=== PATIENT | female | born 1965 | race Caucasian/White ===

== ENCOUNTER 2023-03-22 08:04 | Emergency (ER) | payer OTHER, SELFPAY ==
--- NOTE | 2023-03-22 08:06 | ED.URI ---
HPI - URI/Sore Throat General Chief Complaint: Upper Respiratory Infection Stated Complaint: Sore Throat Time Seen by Provider: 03/22/23 08:14 Source: patient, RN notes reviewed and old records reviewed Mode of arrival: ambulatory Limitations: no limitations History of Present Illness HPI Narrative: 57-year-old female presents to the [facility] with complaints of a sore throat that she woke up with just prior to arrival. No treatment prior to arrival Requesting a work note MD elicited complaint: sore throat Onset (ago): hour(s) (1) Treatments prior to arrival: none Related Data Home Medications Medication Instructions Recorded Confirmed amlodipine 10 mg tablet 10 mg PO DAILY 03/22/23 03/22/23 hydrochlorothiazide 25 mg tablet 25 mg PO DAILY 03/22/23 03/22/23 potassium chloride 20 mEq 20 meq PO DAILY 03/22/23 03/22/23 tablet,extended release propranolol 10 mg tablet 10 mg PO DAILY 03/22/23 03/22/23 Allergies Allergy/AdvReac Type Severity Reaction Status Date / Time Sulfa (Sulfonamide Allergy Hives Verified 03/22/23 08:15 Antibiotics) Review of Systems Review of Systems: All systems reviewed & are unremarkable except as noted in HPI and below Constitutional: Constitutional: Reports no additional constitutional complaints Eyes: Eyes: Reports no additional eye complaints ENT: Reports as per HPI and Reports sore throat Cardiovascular: Cardiovascular: Reports no additional cardiovascular complaints, Denies chest pain and Denies dyspnea Respiratory: Respiratory: Reports no additional respiratory complaints, Denies chest congestion, Denies cough and Denies dyspnea Gastrointestinal: Gastrointestinal: Reports no additional gastrointestinal complaints, Denies abdominal pain, Denies nausea and Denies vomiting Musculoskeletal: Musculoskeletal: Reports no additional musculoskeletal complaints Integumentary/Breasts: Skin/Breast: Reports system reviewed and no additional complaints, except as docu Neurologic: Reports system reviewed and no additional complaints, except as documented Psychiatric: Psychiatric: Reports no additional psychiatric complaints Allergic/Immunologic: Allergic/Immunologic: Reports no additional allergic/immunologic complaints PMFSH Past Medical History Medical History (Updated 03/22/23 @ 08:32 by Gisela Tidwell APRN) H/O gastroesophageal reflux (GERD) Hx of primary hypertension Social History Social History (Updated 03/22/23 @ 08:23 by Gisela Tidwell APRN) Smoking status: Current every day smoker Tobacco type: cigarettes Comments At the time of my signature, I reviewed and agree with the nursing past medical, surgical, social, and family history. There is no relevant family history pertinent to the patient complaint. Exam Const: General: cooperative, no acute distress, well developed, alert, ill appearing chronically, uncomfortable and well nourished Nutritional Appearance: well nourished Orientation/consciousness: patient oriented x3 Limitations: no limitations HENMT: Head: normal to inspection Ears: hearing grossly normal bilaterally, external ears normal, TM's normal bilaterally, EAC's normal, mastoids normal and no periauricular adenopathy Face/Nose/Sinus: Normal external nose present, Normal nares present, Normal nasal mucous membranes and turbinates present, normal facial exam and face symmetric Face and sinus: normal facial exam and face symmetric Mouth: Yes Normal oral and palatal mucosa present, Yes lip normal and Yes moist mucous membranes Throat: tonsils normal, uvula midline, posterior oropharynx abnormal cobblestoning and erythema; no edema, no exudates and no lacerations and no uvular edema Eyes: General: appearance normal, both eyes and all related structures Alignment and Position: alignment normal Periorbital: periorbital findings normal Pupils: Equal, round and reactive pupils present EOM: EOMs intact bilaterally Neck: Neck: normal visual inspection,
[2023-03-22 08:10] VITALS: BP 123/86; PULSE 94; RESP 16; TEMP 36.4; O2SAT 100
== END 2023-03-22 08:51 | disposition home or self-care (01) ==
PROVIDERS: Emergency Provider Nurse Practitioner
DX: J02.0 Streptococcal pharyngitis (principal); I10 Essential (primary) hypertension; F17.210 Nicotine dependence, cigarettes, uncomplicated; Z79.899 Other long term (current) drug therapy
CPT/HCPCS: 87880; 99213; G0463

== ENCOUNTER 2024-06-10 08:45 | Emergency (ER) | payer OTHER, SELFPAY ==
[2024-06-10 08:54] VITALS: BP 123/84; PULSE 105; RESP 20; TEMP 36.6; O2SAT 98
--- OUTSIDE RECORDS SUMMARY | 2024-06-10 09:10 | XMS_ITS | Clinical Summary ---
Author Organization [facility] Address [address] [place] [address] Phone Care Team Providers Care Load Tester Name Role Phone Miri Espinal MD Primary Care Provider [phone] Allergies Active Allergy Reactions Criticality Noted Date Comments Sulfa Antibiotics Hives Low 02/14/2015 Medications meclizine (ANTIVERT) 25 MG Tablet Take 1-2 Tabs by mouth 3 times daily as needed. 60 Tab 0 015 Active Additional Information Patient not taking.Reported on 11/20/2017 hydrochlorothiazide 25 MG Tablet Take 25 mg by mouth daily. Active amLODIPine (NORVASC) 10 MG Tablet Take 10 mg by mouth daily. Active lansoprazole (PREVACID SOLUTAB) 15 MG TABLET DISPERSIBLEIndicati ons:Symptomatic Gastroesophageal Reflux Disease (Inactive) Take 15 mg by mouth daily. Indications: Gastroesophageal Reflux Disease with Current Symptoms Active propranolol (INDERAL) 20 MG Tablet TAKE 1 TABLET BY MOUTH THREE TIMES DAILY 90 Tab 3 017 Active otherIndications:he mp oil 1000 mg 1 Tab by Other route daily. Active Active Problems Problem Noted Date Diagnosed Date Essential tremor 08/16/2015 B12 deficiency 08/16/2015 History of TIA (transient ischemic attack) 05/04 Tobacco dependence 05/04/2015 Essential hypertension 05/04/2015 Tremor 05/04/2015 Family History Medical History Relation Name Comments Cancer Father pancreatic Hypertension Father Cancer Maternal Grandmother ovarian Cancer Paternal Grandmother bone an d breast Relation Name Status Comments Father Maternal Grandmother Mother Alive Paternal Grandmother Social History Tobacco Use Types Packs/Day Years Used Date Smoking Tobacco: Every Day Cigarettes 1 20 Smokeless Tobacco: Never Tobacco Cessation:Ready to Q uit: No Alcohol Use Standard Drinks/Week Comments Yes 0 (1 standard drink = 0.6 oz pure alcohol) half pint of elisha arteaga, and a few mikes hard lemonade Comments No Sex and Gender Information Value Date Recorded Sex Assigned at Not on file Legal Sex Female 12:00 AM CDT Gender Identity Not on file Sexual Orientation Not on file 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 Not on file Not on file Not on file Last Filed Vital Signs Vital Sign Reading Time Taken Comments Blood Pressure 116/92 12/03/2017 10:30 AM CDT Pulse 74 12/03/2017 10:30 AM CDT Temperature 36 C (96.8 F) 12/03/2017 10:30 AM CDT Respiratory Rate 19 12/03/2017 10:30 AM CDT Oxygen Saturation 100% 12/03/2017 10:30 AM CDT Inhaled Oxygen Concentration - - Weight 55.3 kg (122 lb) 11/20/2017 9:00 AM CDT Height 167.6 cm (5' 6 ) 11/20/2017 9:00 AM CDT Body Mass Index 19.69 11/20/2017 9:00 AM CDT Plan of Treatment Health Maintenance Due Date Last Done Comments Hepatitis C Virus (HCV) Screening 1966 TdaP Immunization 1966 Hepatitis B Immunization (1 of 3 - 19+ 3-dose series) 1985 Pap Smear 10/05/1987 Cervical Cancer Screening (CCS) 1996 HPV/Cotest 1996 Cologuard 2016 Immunochemical Fecal Occult Blood 2016 Mammogram 2016 Pneumococcal Immunization (50+ years) (1 of 1 - PCV) 2016 Colonoscopy 12/03/2022 12/03/2017 Colorectal Cancer Screening 12/03/2022 Influenza Immunization (#1) 2023 10/0 10/2022, 01/28/2022, 12/19/2019, Additional history exists SARS-COV-2 Immunization (2023- season) 2023 02/04/2021, 06/17/2020 Respiratory Syncytial Virus (RSV) Immunization (Adult) (1 - 1-dose 75+ series) 2041 12/03/2017 Zoster Immunization Completed 05/27/2021, Meningococcal Immunization (ACWY) Aged Out No longer eligible based on patient's age to complete this topic Pneumococcal Immunization Combined Aged Out No longer eligible based on patient's age to complete this topic Rotavirus Immunization Aged Out No lo nger eligible based on patient's age to complete this topic Insurance [employer]ICAID [employer] Care Teams Load Tester Relationship Specialty Start Date End Date Miri Espinal MD [address] [place] [address] PCP - General Family Medicine 02/28/23
--- OUTSIDE RECORDS SUMMARY | 2024-06-10 09:10 | XMS_ITS | Data Portability ---
Author Organization [facility] Asim Uriostegui Address [address] [place] [address] Care Team Providers Care Concession Stand Attendant Name Role Phone FITZ WISE Primary Care Provider Laura santana Assessment Encounter Date Assessment Date Assessment LastModified by Organization Details LastModified Time 03/20/2022 03/20/2022 Pt's case was reviewed with resident. Documentation was reviewed, and I agree with the resident's note. Dr. Ronny Not available 03/21/2022 13:15:53 03/03/2024 03/03/2024 I personally saw and examined pt w/resident. Documentation was reviewed, and I agree w/resident's note. Dr. Ronny Not available 03/05/2024 07:27:05 Plan of Treatment Reminders Order Date Submit Date Provider Last Modified By Organization Details Last Modified Time Details Appointments None recorde d. Lab urinaly sis, dipstic k, reflex micro 2023 024 [facility], [address] [place] [address], [address], 13:13:02 urinaly sis, dipstic k 2023 024 [email or web address] In-Office Order, Internal Use Only DO Not Attach Compendium DO Not Attach Compendium, Do Not Delete/merge, [id number] 14:52:19 BMP, serum or plasma 2023 024 [facility], [address] [place] [address] 2, [place], [address], 4 13:13:00 urinaly sis, dipstic k 2023 024 [email or web address] In-Office Order, Internal Use Only DO Not Attach Compendium DO Not Attach Compendium, Do Not Delete/merge, [id number] 4 13:08:14 unliste d lab - UA+urin e culture 2023 024 [facility], [address] [facility], [facility] 2, [place], [address], 4 06:18:46 vitamin B12 + folate, serum or blood 2022 023 [facility], [address] [facility], [facility] 2, [place], [address], 3 17:09:42 CBC w/ auto diff 2022 023 [facility], [address] [facility], [facility] 2, [place], [address], 3 20:08:28 ferriti n, serum or plasma 2022 023 [facility], [address] [facility], [facility] 2, [place], [address], 3 17:09:44 TIBC (total iron-bi nding capacit y), serum 2022 023 [facility], [address] [facility], [facility] 2, [place], [address], 3 17:09:42 HbA1c (hemogl obin A1c), blood 2022 023 [facility], [address] [facility], [facility] [address], [place], [address], 3 17:09:43 urinaly sis, dipstic k 2022 023 JOSELYN In-Office Order, Internal Use Only DO Not Attach Compendium DO Not Attach Compendium, Do Not Delete/merge, [id number] 3 10:39:48 CMP, serum or plasma 2022 023 [facility], [address], [place], [address], 3 17:09:[address] referra l 2023 024 JOSELYN Lopez MD, [address] [facility] [address], [place], [address], 4 15:04:33 Procedures None recorde d. Surgeries None recorde d. Imaging LDCT, chest, for lung cancer screeni ng 2022 023 [facility] ([facility] Registration/ Lab, [address] [place], [address], 3 10:05:21 MAMMO, screeni ng, digital , bilater al 2022 023 [email or web address] [facility] ([facility]) Registration/ Lab, [address] [place], [address], 4 09:32:02 LDCT, chest, for lung cancer screeni ng 2021 022 [facility] ([facility]) Registration/ Lab, [address] [place], [address], 2 09:10:04 DEXA 2021 022 [facility] Lab, [address] [place], [address], 2 09:08:01 Medication Orders propran olol 10 mg tablet 2023 024 JOSELYN [id number], [address], [place], [place], [id number], 13:08:22 amlodip ine 10 mg tablet 2023 [facility][id number], [address], [place], [place], [id number], 13:08:25 hydroch lorothi azide 25 mg tablet 2023 [facility] #[id number], [address], [place], [place], [id number], 13:08:23 Patient TargetsNo targets recorded. Patient Instructions Encounter Date Encounter Id Patient Instructions Last Modified By Organization Details Last Modified Time 03/20/2022 [id number] Quitting Tobacco: Care Instructions [email or web address] Not available 03/20/2022 22:15:42 06/08/2022 [id number] Quitting Tobacco: Care Instructions [email or web address] Not available 06/08/2022 17:57:02 On the date of this encounter, I was immediately available to assist the resident/fellow in the care of the patient, and have reviewed and agree with the resident s findings and plan of care. MD Gricelda [email or web address] Not available 06/08/2022 17:47:18 02/26/2023 [id number] Quitting Tobacco: Care Instructions [email or web address] Not available 02/26/2023 10:30:10 I discussed the patient s presentation, findings, assessment and plan with the resident during or immediately after the time of service. I agree with the resident s findings, assessment, and plan as documented in the note above. Mani Lawler MD. [facility] [email or web address] Not available 02/26/2023 15:51:10 08/20/2023 [id number] Quitting Tobacco: Care Instructions [email or web address] Not available 08/20/2023 13:08:12 I was present in the office and available during the visit. I discussed the patient s presentation, findings, assessment and plan with the resident during or immediately after the time of service. I agree with the resident s findings, assessment, and plan as documented in the note above. Mani Lawler MD. [facility] [email or web address] Not available 08/20/2023 12:36:39 Reason for Referral Urologist Referral for Chron ic retention of urine Referring Physician: Horacio Taylor, Putter In, Encounter Date: 03/03/2024 Results Created Date Observation Date Name Description Value Unit Range Abnormal Flag Note LastModifiedBy Organization Detail LastModifiedTime 02/27/2002/26/2023 CBC WITH DIFFE RENTI AL/PL ATELE T WBC 6.7 x10e3 /uL 3.4-10 .8 Not Available [facility] [address] [place], [address], 02/26/2023 20:08:28 02/27/20 23 02/26/2023 CBC WITH DIFFE RENTI AL/PL ATELE T RBC 4.31 x10e6 /uL 3.77-5 .28 Not Available [facility] [address] [place], [address], 02/26/2023 20:08:28 02/27/20 23 02/26/2023 CBC WITH DIFFE RENTI AL/PL ATELE T hemoglobin 14.7 g/dL 11.1-1 5.9 Not Available [facility] [address] [place], [address], 02/26/2023 20:08:28 02/27/20 23 02/26/2023 CBC WITH DIFFE RENTI AL/PL ATELE T hematocrit 41.5 % 34.0-4 6.6 Not Available [facility] [address] [place], [address], 02/26/2023 20:08:28 02/27/20 23 02/26/2023 CBC WITH DIFFE RENTI AL/PL ATELE T MCV 96 fL 79-97 Not Available [facility] [address] [place], [address], 02/26/2023 20:08:28 02/27/20 23 02/26/2023 CBC WITH DIFFE RENTI AL/PL ATELE T MCH 34.1 pg 26.6-3 3.0 above high normal Not Available [facility] [address] [place], [address], 02/26/2023 20:08:28 02/27/20 23 02/26/2023 CBC WITH DIFFE RENTI AL/PL ATELE T MCHC 35.4 g/dL 31.5-3 5.7 Not Available [facility] [address] [place], [address], 02/26/2023 20:08:28 02/27/20 23 02/26/2023 CBC WITH DIFFE RENTI AL/PL ATELE T RDW 12.2 % 11.5-1 4.5 Not Available [facility] [address] [place], [address], 02/26/2023 20:08:28 02/27/20 23 02/26/2023 CBC WITH DIFFE RENTI AL/PL ATELE T platelets 283 x10e3 /uL 150-45 0 Not Available [facility] [address] [place], [address], 02/26/2023 20:08:28 02/27/20 23 02/26/2023 CBC WITH DIFFE RENTI AL/PL ATELE T neutrophils 54 % notest b. Not Available [facility] [address] [place], [address], 02/26/2023 20:08:28 02/27/20 23 02/26/2023 CBC WITH DIFFE RENTI AL/PL ATELE T lymphs 29 % notest b. Not Available [facility] [address] [place], [address], 02/26/2023 20:08:28 02/27/20 23 02/26/2023 CBC WITH DIFFE RENTI AL/PL ATELE T monocytes 12 % notest b. Not Available [facility] [address] [place], [address], 02/26/2023 20:08:28 02/27/20 23 02/26/2023 CBC WITH DIFFE RENTI AL/PL ATELE T eos 3 % notest b. Not Available [facility] [address] [place], [address], 02/26/2023 20:08:28 02/27/20 23 02/26/2023 CBC WITH DIFFE RENTI AL/PL ATELE T basos 2 % notest b. Not Available [facility] [address] [place], [address], 02/26/2023 20:08:28 02/27/20 23 02/26/2023 CBC WITH DIFFE RENTI AL/PL ATELE T neutrophils (absolute) 3.6 x10e3 /uL 1.4-7. 0 Not Available [facility] [address] [place], [address], 02/26/2023 20:08:28 02/27/20 23 02/26/2023 CBC WITH DIFFE RENTI AL/PL ATELE T lymphs (absolute) 1.9 x10e3 /uL 0.7-3. 1 Not Available [facility] [address] [place], [address], 02/26/2023 20:08:28 02/27/20 23 02/26/2023 CBC WITH DIFFE RENTI AL/PL ATELE T monocytes(ab solute) 0.8 x10e3 /uL 0.1-0. 9 Not Available [facility] [address] [place], [address], 02/26/2023 20:08:28 02/27/20 23 02/26/2023 CBC WITH DIFFE RENTI AL/PL ATELE T eos (absolute) 0.2 x10e3 /uL 0.0-0. 4 Not Available [facility] [address] [place], [address], 02/26/2023 20:08:28 02/27/20 23 02/26/2023 CBC WITH DIFFE RENTI AL/PL ATELE T baso (absolute) 0.1 x10e3 /uL 0.0-0. 2 Not Available [facility] [address] [place], [address], 02/26/2023 20:08:28 02/27/20 23 02/26/2023 CBC WITH DIFFE RENTI AL/PL ATELE T immature granulocytes 0.1 % notest b. Not Available [facility] [address] [place], [address], 02/26/2023 20:08:28 02/27/20 23 02/26/2023 CBC WITH DIFFE RENTI AL/PL ATELE T immature grans (abs) 0.0 x10e3 /uL 0.0-0. 1 Not Available [facility] [address] [place], [address], 02/26/2023 20:08:28 02/27/20 23 02/26/2023 CBC WITH DIFFE RENTI AL/PL ATELE T NRBC 0 % 0-0 Not Available [facility] [address] [place], [address], 02/26/2023 20:08:28 02/27/20 23 02/27/2023 CMP14 +EGFR glucose 85 mg/dL 70-99 Not Available [facility] ([facility]) [address] [facility], [place], [address], 02/27/2023 17:09:41 02/27/20 23 02/27/2023 CMP14 +EGFR BUN 8 mg/dL 6-24 Not Available [facility] ([facility]) [address] [facility], [place], [address], 02/27/2023 17:09:41 02/27/20 23 02/27/2023 CMP14 +EGFR creatinine 0.66 mg/dL 0.57-1 .00 Not Available [facility] ([facility]) [address] [place], [address], 02/27/2023 17:09:41 02/27/20 23 02/27/2023 CMP14 +EGFR eGFR 103 mL/mi n/1.7 3 >59 Not Available [facility] ([facility]) [address] [facility], [place], [address], 02/27/2023 17:09:41 02/27/20 23 02/27/2023 CMP14 +EGFR BUN/creatini ne ratio 12 12-30 Not Available [facility] ([facility]) [address] [place], [address], 02/27/2023 17:09:41 02/27/20 23 02/27/2023 CMP14 +EGFR sodium 138 mmol/ L 134-14 4 Not Available [facility] ([facility]) [address] [place], [address], 02/27/2023 17:09:41 02/27/20 23 02/27/2023 CMP14 +EGFR potassium 2.8 mmol/ L 3.5-5. 2 below low normal Not Available [facility] ([facility]) [address] [place], [address], 02/27/2023 17:09:41 02/27/20 23 02/27/2023 CMP14 +EGFR chloride 94 mmol/ L 96-106 below low normal Not Available [facility] ([facility]) [address] [place], [address], 02/27/2023 17:09:41 02/27/20 23 02/27/2023 CMP14 +EGFR carbon dioxide, total 28 mmol/ L 20-29 Not Available [facility] ([facility]) [address] [place], [address], 02/27/2023 17:09:41 02/27/20 23 02/27/2023 CMP14 +EGFR calcium 9.8 mg/dL 8.7-10 .2 Not Available [facility] ([facility]) [address] [facility], [place], [address], 02/27/2023 17:09:41 02/27/20 23 02/27/2023 CMP14 +EGFR protein, total 7.2 g/dL 6.0-8. 5 Not Available [facility] ([facility]) [address] [facility], [place], [address], 02/27/2023 17:09:41 02/27/20 23 02/27/2023 CMP14 +EGFR albumin 4.8 g/dL 3.8-4. 9 Not Available [facility] ([facility]) [address] [facility], [place], [address], 02/27/2023 17:09:41 02/27/20 23 02/27/2023 CMP14 +EGFR globulin, total 2.4 g/dL 1.5-4. 5 Not Available [facility] ([facility]) [address] [facility], [place], [address], 02/27/2023 17:09:41 02/27/20 23 02/27/2023 CMP14 +EGFR A/G ratio 2.0 1.2-2. 2 Not Available [facility] ([facility]) [address] [place], [address], 02/27/2023 17:09:41 02/27/20 23 02/27/2023 CMP14 +EGFR bilirubin, total 0.4 mg/dL 0.0-1. 2 Not Available [facility] ([facility]) [address] [place], [address], 02/27/2023 17:09:41 02/27/20 23 02/27/2023 CMP14 +EGFR alkaline phosphatase 56 IU/L 44-121 Not Available [facility] ([facility]) [address] [facility], [place], [address], 02/27/2023 17:09:41 02/27/20 23 02/27/2023 CMP14 +EGFR AST (SGOT) 76 IU/L 0-40 above high normal Not Available [facility] ([facility]) [address] [facility], [place], [address], 02/27/2023 17:09:41 02/27/20 23 02/27/2023 CMP14 +EGFR ALT (SGPT) 65 IU/L 0-32 above high normal Not Available [facility] ([facility]) [address] [facility], [place], [address], 02/27/2023 17:09:41 02/27/20 23 02/27/2023 VITAM IN B12 AND FOLAT E vitamin B12 >2000 pg/mL 232-12 45 above high normal Not Available [facility] ([facility]) [address] [facility], [place], [address], 02/27/2023 17:09:41 02/27/20 23 02/27/2023 VITAM IN B12 AND FOLAT E folate (folic acid), serum 5.0 NG/mL >3.0 A serum folat e jose de jesus ntrat ion of less than 3.1 ng/mL is consi dered to repre sent clini zander defic iency . Not Available [facility] ([facility]) [address] [facility], [place], [address], 02/27/2023 17:09:41 02/27/20 23 02/27/2023 IRON AND TIBC iron bind.cap.(TI BC) 268 ug/dL 250-45 0 Not Available [facility] ([facility]) [address] [facility], [place], [address], 02/27/2023 17:09:42 02/27/20 23 02/27/2023 IRON AND TIBC UIBC 131 ug/dL 131-42 5 Not Available [facility] ([facility]) [address] [facility], [place], [address], 02/27/2023 17:09:42 02/27/20 23 02/27/2023 IRON AND TIBC iron 137 ug/dL 27-159 Not Available [facility] ([facility]) [address] [facility], [place], [address], 02/27/2023 17:09:42 02/27/20 23 02/27/2023 IRON AND TIBC iron saturation 51 % 15-55 Not Available [facility] ([facility]) [address] [facility], [place], [address], 02/27/2023 17:09:42 02/27/20 23 02/27/2023 HEMOG LOBIN A1C hemoglobin A1C 5.5 % 4.8-5. 6 Predi abete s: 5.7 - 6.4 Diabe ellen: >6.4 Glyce ayla contr ol for adult s with diabe ellen: <7.0 Not Available [facility] ([facility]) [address] [facility], [place], [address], 02/27/2023 17:09:43 02/27/20 23 02/27/2023 MIGUEL ANGEL TIN ferritin 715 NG/mL 15-150 above high normal Not Available [facility] ([facility]) [address] [place], [address], 02/27/2023 17:09:44 02/28/20 23 02/27/2023 urina lysis , dipst ick Leukocytes Negati ve Not Available In-Office Order Internal Use Only DO Not Attach Compendium DO Not Attach Compendium, Do Not Delete/merge, [id number] 02/26/2023 10:29:15 02/28/20 23 02/27/2023 urina lysis , dipst ick Nitrite negati ve Not Available In-Office Order Internal Use Only DO Not Attach Compendium DO Not Attach Compendium, Do Not Delete/merge, [id number] 02/26/2023 10:29:15 02/28/20 23 02/27/2023 urina lysis , dipst ick Urobilinogen .2 Not Available In-Of fice Order Internal Use Only DO Not Attach Compendium DO Not Attach Compendium, Do Not Delete/merge, [id number] 02/26/2023 10:29:15 02/28/20 23 02/27/2023 urina lysis , dipst ick Protein Negati ve Not Available In-Office Order Internal Use Only DO Not Attach Compendium DO Not Attach Compendium, Do Not Delete/merge, [id number] 02/26/2023 10:29:15 02/28/20 23 02/27/2023 urina lysis , dipst ick pH 6.0 Not Available In-Office Order Internal Use Only DO Not Attach Compendium DO Not Attach Compendium, Do Not Delete/merge, [id number] 02/26/2023 10:29:15 02/28/20 23 02/27/2023 urina lysis , dipst ick Blood Negati ve Not Available In-Office Order Internal Use Only DO Not Attach Compendium DO Not Attach Compendium, Do Not Delete/merge, [id number] 02/26/2023 10:29:15 02/28/20 23 02/27/2023 urina lysis , dipst ick Specific [place] 1.025 Not Available In-Off ice Order Internal Use Only DO Not Attach Compendium DO Not Attach Compendium, Do Not Delete/merge, [id number] 02/26/2023 10:29:15 02/28/20 23 02/27/2023 urina lysis , dipst ick Ketone Negati ve Not Available In-Office Order Internal Use Only DO Not Attach Compendium DO Not Attach Compendium, Do Not Delete/merge, [id number] 02/26/2023 10:29:15 02/28/20 23 02/27/2023 urina lysis , dipst ick Bilirubin Negati ve Not Available In-Office Order Internal Use Only DO Not Attach Compendium DO Not Attach Compendium, Do Not Delete/merge, [id number] 02/26/2023 10:29:15 02/28/20 23 02/27/2023 urina lysis , dipst ick Glucose 2000+ Not Available In-Office Order Internal Use Only DO Not Attach Compendium DO Not Attach Compendium, Do Not Delete/merge, [id number] 02/26/2023 10:29:15 02/28/20 23 02/27/2023 urina lysis , dipst ick Appearance Clear Not Available In-Offi ce Order Internal Use Only DO Not Attach Compendium DO Not Attach Compendium, Do Not Delete/merge, [id number] 02/26/2023 10:29:15 02/28/20 23 02/27/2023 urina lysis , dipst ick Color Yellow Not Available In-Office Order Internal Use Only DO Not Attach Compendium DO Not Attach Compendium, Do Not Delete/merge, [id number] 02/26/2023 10:29:15 08/20/19 24 08/21/2023 MICRO SCOPI C EXAMI NATIO N WBC None seen /hpf 0-5 Not Available [facility] ([facility]) [address] [facility], [place], [address], 08/22/2023 06:18:45 08/20/19 24 08/21/2023 MICRO SCOPI C EXAMI NATIO N RBC None seen /hpf 0-2 Not Available [facility] ([facility]) [address] [facility], [place], [address], 08/22/2023 06:18:45 08/20/19 24 08/21/2023 MICRO SCOPI C EXAMI NATIO N epithelial cells (non renal) 0-10 /hpf 0-10 Not Available [facility] ([facility]) [address] [facility], [place], [address], 08/22/2023 06:18:45 08/20/19 24 08/21/2023 MICRO SCOPI C EXAMI NATIO N casts None seen /lpf nonese en Not Available [facility] ([facility]) [address] [facility], [place], [address], 08/22/2023 06:18:45 05/13/08/21/2023 MICRO SCOPI C EXAMI NATIO N bacteria Few nonese en/few Not Available [facility] ([facility]) [address] [place], [address], 08/22/2023 06:18:45 08/20/19 24 08/22/2023 MICRO SCOPI C EXAMI NATIO N result 1 Commen t Mixed uroge nital gus 50,00 0-100 ,000 colon y formi ng units per mL Not Available [facility] ([facility]) [address] [place], [address], 08/22/2023 06:18:45 08/20/19 24 08/21/2023 UA+UR INE CULTU RE specific gravity 1.015 1.005- 1.030 Not Available [facility] ([facility]) [address] [place], [address], 08/22/2023 06:18:46 08/20/19 24 08/21/2023 UA+UR INE CULTU RE pH 6.5 5.0-7. 5 Not Available [facility] ([facility]) [address] [place], [address], 08/22/2023 06:18:46 08/20/19 24 08/21/2023 UA+UR INE CULTU RE urine-color YELLOW yellow Not Available [facility] ([facility]) [address] [place], [address], 08/22/2023 06:18:46 08/20/19 24 08/21/2023 UA+UR INE CULTU RE appearance CLEAR clear Not Available [facility] ([facility]) [address] [place], [address], 08/22/2023 06:18:46 08/20/19 24 08/21/2023 UA+UR INE CULTU RE WBC esterase NEGATI VE negati ve Not Available [facility] ([facility]) [address] [place], [address], 08/22/2023 06:18:46 08/20/19 24 08/21/2023 UA+UR INE CULTU RE protein 1+ negati ve/tra ce abnormal Not Available [facility] ([facility]) [address] [place], [address], 08/22/2023 06:18:46 08/20/19 24 08/21/2023 UA+UR INE CULTU RE glucose NEGATI VE negati ve Not Available [facility] ([facility]) [address] [place], [address], 08/22/2023 06:18:46 08/20/19 24 08/21/2023 UA+UR INE CULTU RE ketones NEGATI VE negati ve Not Available [facility] ([facility]) [address] [place], [address], 08/22/2023 06:18:46 08/20/19 24 08/21/2023 UA+UR INE CULTU RE occult blood NEGATI VE negati ve Not Available [facility] ([facility]) [address] [place], [address], 08/22/2023 06:18:46 08/20/19 24 08/21/2023 UA+UR INE CULTU RE bilirubin NEGATI VE negati ve Not Available [facility] ([facility]) [address] [place], [address], 08/22/2023 06:18:46 08/20/19 24 08/21/2023 UA+UR INE CULTU RE urobilinogen ,semi-qn 0.2 mg/dL 0.2-1. 0 Not Available [facility] ([facility]) [address] [place], [address], 08/22/2023 06:18:46 08/20/19 24 08/21/2023 UA+UR INE CULTU RE nitrite, urine NEGATI VE negati ve Not Available [facility] ([facility]) [address] [facility], [place], [address], 08/22/2023 06:18:46 08/20/19 24 08/21/2023 UA+UR INE CULTU RE microscopic examination SEE BELOW: Angie chowdhury c was indic ated and was perfo rmed. Not Available [facility] ([facility]) [address] [facility], [place], [address], 08/22/2023 06:18:46 08/20/19 24 08/22/2023 UA+UR INE CULTU RE urine culture, routine FINAL REPORT Not Available [facility] ([facility]) [address] [facility], [place], [address], 08/22/2023 06:18:46 08/20/19 24 08/20/2023 urina lysis , dipst ick Leukocytes Negati ve Not Available In-Office Order Internal Use Only DO Not Attach Compendium DO Not Attach Compendium, Do Not Delete/merge, 08/20/2023 11:38:00 08/20/19 24 08/20/2023 urina lysis , dipst ick Nitrite negati ve Not Available In-Office Order Internal Use Only DO Not Attach Compendium DO Not Attach Compendium, Do Not Delete/merge, 08/20/2023 11:38:00 08/20/19 24 08/20/2023 urina lysis , dipst ick Urobilinogen .2 Not Available In-Of fice Order Internal Use Only DO Not Attach Compendium DO Not Attach Compendium, Do Not Delete/merge, 08/20/2023 11:38:00 08/20/19 24 08/20/2023 urina lysis , dipst ick Protein 30 Not Available In-Office Order Internal Use Only DO Not Attach Compendium DO Not Attach Compendium, Do Not Delete/merge, 08/20/2023 11:38:00 08/20/19 24 08/20/2023 urina lysis , dipst ick pH 6.0 Not Available In-Office Order Internal Use Only DO Not Attach Compendium DO Not Attach Compendium, Do Not Delete/merge, 08/20/2023 11:38:00 08/20/19 24 08/20/2023 urina lysis , dipst ick Blood Hemoly zed: Trace Not Available In-Office Order Internal Use Only DO Not Attach Compendium DO Not Attach Compendium, Do Not Delete/merge, 08/20/2023 11:38:00 08/20/19 24 08/20/2023 urina lysis , dipst ick Specific [place] 1.015 Not Available In-Off ice Order Internal Use Only DO Not Attach Compendium DO Not Attach Compendium, Do Not Delete/merge, 08/20/2023 11:38:00 08/20/19 24 08/20/2023 urina lysis , dipst ick Ketone Trace Not Available In-Office Order Internal Use Only DO Not Attach Compendium DO Not Attach Compendium, Do Not Delete/merge, 08/20/2023 11:38:00 08/20/19 24 08/20/2023 urina lysis , dipst ick Bilirubin Negati ve Not Available In-Office Order Internal Use Only DO Not Attach Compendium DO Not Attach Compendium, Do Not Delete/merge, 08/20/2023 11:38:00 08/20/19 24 08/20/2023 urina lysis , dipst ick Glucose Negati ve Not Available In-Office Order Internal Use Only DO Not Attach Compendium DO Not Attach Compendium, Do Not Delete/merge, 08/20/2023 11:38:00 08/20/19 24 08/20/2023 urina lysis , dipst ick Appearance Slight ly Cloudy Not Available In-Office Order Internal Use Only DO Not Attach Compendium DO Not Attach Compendium, Do Not Delete/merge, 08/20/2023 11:38:00 08/20/19 24 08/20/2023 urina lysis , dipst ick Color [place] Not Available In-Office Order Internal Use Only DO Not Attach Compendium DO Not Attach Compendium, Do Not Delete/merge, 08/20/2023 11:38:00 03/03/20 24 03/04/2024 BASIC METAB OLIC PANEL (8) glucose 97 mg/dL 70-99 Not Available [facility] ([facility]) [address] [place], [address], 03/04/2024 13:13:00 03/03/20 24 03/04/2024 BASIC METAB OLIC PANEL (8) BUN 7 mg/dL 6-24 Not Available [facility] ([facility]) [address] [place], [place], [address], 03/04/2024 13:13:00 03/03/2003/04/2024 BASIC METAB OLIC PANEL (8) creatinine 0.55 mg/dL 0.57-1 .00 below low normal Not Available [facility] ([facility]) [address] [place], [address], 03/04/2024 13:13:00 03/03/20 24 03/04/2024 BASIC METAB OLIC PANEL (8) eGFR 107 mL/mi n/1.7 3 >59 Not Available [facility] ([facility]) [address] [place], [address], 03/04/2024 13:13:00 03/03/20 24 03/04/2024 BASIC METAB OLIC PANEL (8) BUN/creatini ne ratio 13 9-23 Not Available [facility] ([facility]) [address] [place], [address], 03/04/2024 13:13:00 03/03/20 24 03/04/2024 BASIC METAB OLIC PANEL (8) sodium 140 mmol/ L 134-14 4 Not Available [facility] ([facility]) [address] [place], [address], 03/04/2024 13:13:00 03/03/20 24 03/04/2024 BASIC METAB OLIC PANEL (8) potassium 3.1 mmol/ L 3.5-5. 2 below low normal Not Available [facility] ([facility]) [address] [facility], [place], [address], 03/04/2024 13:13:00 03/03/2003/04/2024 BASIC METAB OLIC PANEL (8) chloride 98 mmol/ L 96-106 Not Available [facility] ([facility]) [address] [facility], [place], [address], 03/04/2024 13:13:00 03/03/2003/04/2024 BASIC METAB OLIC PANEL (8) carbon dioxide, total 25 mmol/ L 20-29 Not Available [facility] ([facility]) [address] [facility], [place], [address], 03/04/2024 13:13:00 03/03/20 24 03/04/2024 BASIC METAB OLIC PANEL (8) calcium 9.8 mg/dL 8.7-10 .2 Not Available [facility] ([facility]) [address] [facility], [place], [address], 03/04/2024 13:13:00 03/03/2003/04/2024 MICRO SCOPI C EXAMI NATIO N WBC 0-5 /hpf 0-5 Not Available [facility] ([facility]) [address] [facility], [place], [address], 03/04/2024 13:13:01 03/03/2003/04/2024 MICRO SCOPI C EXAMI NATIO N RBC 0-2 /hpf 0-2 Not Available [facility] ([facility]) [address] [facility], [place], [address], 03/04/2024 13:13:01 03/03/2003/04/2024 MICRO SCOPI C EXAMI NATIO N epithelial cells (non renal) >10 /hpf 0-10 abnormal Not Available [facility] ([facility]) [address] [place], [address], 03/04/2024 13:13:01 03/03/2003/04/2024 MICRO SCOPI C EXAMI NATIO N casts None seen /lpf nonese en Not Available [facility] ([facility]) [address] [facility], [place], [address], 03/04/2024 13:13:01 03/03/2003/04/2024 MICRO SCOPI C EXAMI NATIO N bacteria Few nonese en/few Not Available [facility] ([facility]) [address] [facility], [place], [address], 03/04/2024 13:13:01 03/03/2003/04/2024 URINA LYSIS , ROUTI NE W/RFX specific gravity 1.021 1.005- 1.030 Not Available [facility] ([facility]) [address] [facility], [place], [address], 03/04/2024 13:13:02 03/03/2003/04/2024 URINA LYSIS , ROUTI NE W/RFX pH 8.0 5.0-7. 5 above high normal Not Available [facility] ([facility]) [address] [facility], [place], [address], 03/04/2024 13:13:02 03/03/2003/04/2024 URINA LYSIS , ROUTI NE W/RFX urine-color YELLOW yellow Not Available [facility] ([facility]) [address] [facility], [place], [address], 03/04/2024 13:13:02 03/03/2003/04/2024 URINA LYSIS , ROUTI NE W/RFX appearance CLOUDY clear abnormal Not Available [facility] ([facility]) [address] [place], [address], 03/04/2024 13:13:02 03/03/20 24 03/04/2024 URINA LYSIS , ROUTI NE W/RFX WBC esterase TRACE negati ve abnormal Not Available [facility] ([facility]) [address] [place], [address], 03/04/2024 13:13:02 03/03/2003/04/2024 URINA LYSIS , ROUTI NE W/RFX protein 1+ negati ve/tra ce abnormal Not Available [facility] ([facility]) [address] [place], [address], 03/04/2024 13:13:02 03/03/2003/04/2024 URINA LYSIS , ROUTI NE W/RFX glucose NEGATI VE negati ve Not Available [facility] ([facility]) [address] [place], [address], 03/04/2024 13:13:02 03/03/2003/04/2024 URINA LYSIS , ROUTI NE W/RFX ketones NEGATI VE negati ve Not Available [facility] ([facility]) [address] [place], [address], 03/04/2024 13:13:02 03/03/2003/04/2024 URINA LYSIS , ROUTI NE W/RFX occult blood NEGATI VE negati ve Not Available [facility] ([facility]) [address] [place], [address], 03/04/2024 13:13:02 03/03/2003/04/2024 URINA LYSIS , ROUTI NE W/RFX bilirubin NEGATI VE negati ve Not Available [facility] ([facility]) [address] [place], [address], 03/04/2024 13:13:02 03/03/2003/04/2024 URINA LYSIS , ROUTI NE W/RFX urobilinogen ,semi-qn 1.0 mg/dL 0.2-1. 0 Not Available [facility] ([facility]) [address] [place], [address], 03/04/2024 13:13:02 03/03/20 24 03/04/2024 URINA LYSIS , ROUTI NE W/RFX nitrite, urine NEGATI VE negati ve Not Available [facility] ([facility]) [address] [facility], [place], [address], 03/04/2024 13:13:02 03/03/20 24 03/04/2024 URINA LYSIS , ROUTI NE W/RFX microscopic examination SEE BELOW: Micro scopi c was indic ated and was perfo rmed. Not Available [facility] ([facility]) [address] [facility], [place], [address], 03/04/2024 13:13:02 03/03/20 24 03/03/2024 urina lysis , dipst ick Leukocytes Negati ve Not Available In-Office Order Internal Use Only DO Not Attach Compendium DO Not Attach Compendium, Do Not Delete/merge, [id number] 03/03/2024 14:43:56 03/03/20 24 03/03/2024 urina lysis , dipst ick Nitrite negati ve Not Available In-Office Order Internal Use Only DO Not Attach Compendium DO Not Attach Compendium, Do Not Delete/merge, [id number] 03/03/2024 14:43:56 03/03/20 24 03/03/2024 urina lysis , dipst ick Urobilinogen 1 Not Available In-Of fice Order Internal Use Only DO Not Attach Compendium DO Not Attach Compendium, Do Not Delete/merge, [id number] 03/03/2024 14:43:56 03/03/20 24 03/03/2024 urina lysis , dipst ick Protein 30 Not Available In-Office Order Internal Use Only DO Not Attach Compendium DO Not Attach Compendium, Do Not Delete/merge, [id number] 03/03/2024 14:43:56 03/03/20 24 03/03/2024 urina lysis , dipst ick pH 8.5 Not Available In-Office Order Internal Use Only DO Not Attach Compendium DO Not Attach Compendium, Do Not Delete/merge, [id number] 03/03/2024 14:43:56 03/03/20 24 03/03/2024 urina lysis , dipst ick Blood Non-He molyze d: Trace Not Available In-Office Order Internal Use Only DO Not Attach Compendium DO Not Attach Compendium, Do Not Delete/merge, [id number] 03/03/2024 14:43:56 03/03/20 24 03/03/2024 urina lysis , dipst ick Specific [place] 1.015 Not Available In-Off ice Order Internal Use Only DO Not Attach Compendium DO Not Attach Compendium, Do Not Delete/merge, [id number] 03/03/2024 14:43:56 03/03/20 24 03/03/2024 urina lysis , dipst ick Ketone Trace Not Available In-Office Order Internal Use Only DO Not Attach Compendium DO Not Attach Compendium, Do Not Delete/merge, [id number] 03/03/2024 14:43:56 03/03/20 24 03/03/2024 urina lysis , dipst ick Bilirubin Small Not Available In-Offic e Order Internal Use Only DO Not Attach Compendium DO Not Attach Compendium, Do Not Delete/merge, [id number] 03/03/2024 14:43:56 03/03/20 24 03/03/2024 urina lysis , dipst ick Glucose Negati ve Not Available In-Office Order Internal Use Only DO Not Attach Compendium DO Not Attach Compendium, Do Not Delete/merge, [id number] 03/03/2024 14:43:56 Result Notes None recorded. Problems Name Problem SNOMED Code Status Onset Date Resolution Date Notes Provider Name and Address Organization Details Recorded Time Unintention al weight loss 228132619 Completed 201708/15/2021 Fani Lorenz RN null, [facility] 2 14:53:34 Alcohol abuse 39159444 Active 2017 Fani Lorenz RN null, [facility] 2 14:53:08 Acute urinary tract infection 512907125 Active 2021 Tian Chi MD Attn: Ari powell,[address] [place], [address], [place] [facility] 2 15:28:42 Pruritus of vulva 52862284 Active 2021 Tian Chi MD Attn: Ari powell,[address] [place], [address], [place] [facility] 2 15:28:50 Essential hypertensio n 36838930 Active Fani Lorenz RN null, [place] [facility] 2 14:53:13 Gastroesoph ageal reflux disease 842699777 Active Fani Loren[place] RN [place] [facility] 2 14:53:19 Tobacco user 176320012 Active Fani Loren[place] RN [place] [facility] 2 14:53:30 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 Procedures Surgical History Date Name Laterality Status Provider Name and Address Organization Details Recorded Time 04/09/19 02 Tonsillectomy completed Angely Chiu [place] - [facility] 06/29/2014 15:49:35 04/09/19 Breast Surgery completed Angely Chiu MA [place] - [facility] 06/29/2014 15:49:35 cataract surgery completed WILLIAM Dumont [place] - [facility] 08/20/2023 11:33:37 Imaging Results None recorded. Procedure Notes None recorded. Medical Equipment None Reported. Allergies Allergen ID Allergen Name Allergen Category Reaction Reaction Severity Criticality Documentation Date Start Date Code Code System Note Provider Name and Address Organization Details Recorded Time 10436 Substance with sulfonami de structure and antibacte rial mechanism of action (substanc e) medicatio n hives Not available Not available 06/29/2014 29253 8003 SNOMED Not Available Not Available Not Available 09952 lisinopri l medicatio n cough Not available Not available 10/11/2016 46818 RxNorm Not Available Not Available Not Available Medications Name Sig Start Date Stop Date Status Note LastModified by Organization Details LastModified Time Prescript ion - Prior Authoriza tion Request 03/10 completed Not Available Not Available Not Available cyclobenz aprine 10 mg tablet Take 1 tablet every day by oral route at bedtime for 30 days. 05/17 completed Baclofen was ordered to replace Not Available Not Available Not Available cetirizin e 10 mg tablet 03/10 completed Not Available Not Available Not Available azithromy elisabeth 250 mg tablet TAKE 2 TABLETS (500 MG) BY ORAL ROUTE ONCE DAILY FOR 1 DAY THEN 1 TABLET (250 MG) BY ORAL ROUTE ONCE DAILY FOR 4 DAYS 04/20 completed Not Available Not Available Not Available lidocaine 5 % topical cream apply to affected areas 3-4 times daily PRN active Not Available Not Available No t Available ofloxacin 0.3 % eye drops INSTILL 1 DROP TO SURGICAL EYE THREE TIMES DAILY 02/26 completed Not Available Not Available Not Available fluconazo le 150 mg tablet TAKE 1 TABLET BY MOUTH FOR 1 DAY 08/19 completed Not Available Not Available Not Available famotidin e 40 mg tablet Take 1 tablet every day by oral route. 08/27 completed Not Available Not Available Not Available penicilli n V potassium 500 mg tablet TAKE 1 TABLET BY MOUTH EVERY 12 HOURS FOR 10 DAYS 08/15 completed Not Available Not Available Not Available potassium chloride ER 10 mEq tablet,ex tended release Take 2 tablets once a day by mouth for 30 days 03/05 completed not taking Not Available Not Available Not Available triamcino lone acetonide 0.1 % topical cream APPLY A THIN LAYER TO THE AFFECTED AREA(S) BY TOPICAL ROUTE 2 TIMES PER DAY 11/22 completed Not Available Not Available Not Available amoxicill in 500 mg tablet TAKE 1 TABLET BY MOUTH TWICE DAILY FOR 10 DAYS 08/19 completed Not Available Not Available Not Available ketorolac 0.5 % eye drops 02/26 completed Not Available Not Available Not Available meloxicam 7.5 mg tablet TAKE 1 TABLET BY MOUTH TWICE DAILY WITH MEALS 02/21 completed Not Available Not Available Not Available propranol ol 10 mg tablet TAKE 1 TABLET BY MOUTH EVERY DAY active Not Available Not Available No t Available amoxicill in 875 mg tablet active Not Available Not Available Not Available famotidin e 20 mg tablet TAKE 1 TABLET BY MOUTH TWICE DAILY 12/05 completed Not Available Not Available Not Available prednisol one acetate 1 % eye drops,[employer] pension INSTILL 1 DROP IN RIGHT EYE FOUR TIMES DAILY 02/26 completed Not Available Not Available Not Available ciproflox acin 0.3 % eye drops active Not Available Not Available Not Available meclizine 25 mg tablet Take 1 tablet 3 times a day by oral route. active Not Available Not Available No t Available baclofen 10 mg tablet TAKE 1 TABLET BY MOUTH TWICE DAILY 09/25 completed Not Available Not Available Not Available amlodipin e 10 mg tablet TAKE 1 TABLET BY MOUTH EVERY DAY active Not Available Not Available No t Available pantopraz ole 40 mg tablet,de layed release Take 1 tablet every day by oral route. 02/21 completed Not Available Not Available Not Available erythromy elisabeth 5 mg/gram (0.5 %) eye ointment APPLY SMALL AMOUNT TO THE EYELID THREE TIMES DAILY AFTER SURGERY FOR 10 DAYS 02/26 completed Not Available Not Available Not Available esomepraz ole magnesium 40 mg capsule,d elayed release TAKE 1 CAPSULE BY MOUTH EVERY DAY 12/01 completed Not Available Not Available Not Available lansopraz ole 15 mg capsule,d elayed release Take 1 capsule every day by oral route. active Not Available Not Available No t Available sertralin e 25 mg tablet TAKE 1 TABLET BY MOUTH EVERY DAY 06/08 completed made pt feel loopy Not Available Not Available Not Available omeprazol e 20 mg capsule,d elayed release TAKE 1 CAPSULE BY MOUTH EVERY DAY 12/07 completed Not Available Not Available Not Available hydrochlo rothiazid e 25 mg tablet TAKE 1 TABLET BY MOUTH EVERY DAY FOR 90 DAYS active Not Available Not Available No t Available ergocalci ferol (vitamin D2) 1,250 mcg (50,000 unit) capsule TAKE ONE CAPSULE BY MOUTH EVERY WEEK 11/22 completed Not Available Not Available Not Available Tylenol-C odeine #3 300 mg-30 mg tablet Take 1 tablet twice a day by oral route as needed. 09/25 completed Not Available Not Available Not Available ibuprofen 600 mg tablet Take 1 tablet 3 times a day by oral route as needed for 30 days. 08/27 completed Not Available Not Available Not Available propranol ol 20 mg tablet TAKE 1 TABLET BY MOUTH EVERY DAY 12/10 completed Not Available Not Available Not Available ondansetr on 4 mg disintegr ating tablet DISSOLVE 1 TABLET ON THE TONGUE EVERY 6 HOURS NEEDED FOR NAUSEA OR VOMITING 02/26 completed Not Available Not Available Not Available fluticaso ne propionat e 50 mcg/actua tion nasal spray,[employer] SHAKE LIQUID AND USE 1 SPRAY IN EACH NOSTRIL EVERY DAY 09/25 completed Not Available Not Available Not Available naproxen 500 mg tablet Take 1 tablet twice a day by oral route with meals. 08/27 completed Not Available Not Available Not Available amoxicill in 875 mg-potass ium clavulana te 125 mg tablet 06/08 completed Not Available Not Available Not Available Ventolin HFA 90 mcg/actua tion aerosol inhaler 03/10 completed Not Available Not Available Not Available nitrofura ntoin monohydra te/macroc rystals 100 mg capsule TAKE 1 CAPSULE BY MOUTH EVERY 12 HOURS FOR 5 DAYS. MUST TAKE WITH FOOD OR A MEAL. 02/26 completed Not Available Not Available Not Available potassium chloride ER 20 mEq tablet,ex tended release Take 1 tablet every day by oral route for 30 days. active Not Available Not Available No t Available Afluria Qd 2019- (36 mos up)(PF)60 mcg (15 mcg x4)/0.5 mL IM syringe 11/22 completed Not Available Not Available Not Available Vitals Date Recorded Body height Body mass index (BMI) Body weight Heart rate Body temperature Respiratory rate Oxygen saturation Oxygen saturation in Arterial blood by Pulse oximetry Systolic blood pressure Diastolic blood pressure Provider Name and Address Organization Details Last Updated DateTime 2 167.64 cm 19.9 kg/m2 34348.0 1 g 95 /min 97.3 [degF] 16 /min 98 % 98 % 110 mm[Hg] 68 mm[Hg] Anabella Patel MA [facility] 2 14:30:50 Date Recorded Body height Body mass index (BMI) Body weight Body temperature Respiratory rate Heart rate Oxygen saturation Oxygen saturation in Arterial blood by Pulse oximetry Systolic blood pressure Diastolic blood pressure Provider Name and Address Organization Details Last Updated DateTime 3 167.64 cm 19.1 kg/m2 34007.3 g 98.1 [degF] 16 /min 83 /min 96 % 96 % 128 mm[Hg] 86 mm[Hg] Cheryl Kong MA [facility] 3 17:17:10 Date Recorded Body height Body mass index (BMI) Body weight Body temperature Heart rate Respiratory rate Systolic blood pressure Diastolic blood pressure Provider Name and Address Organization Details Last Updated DateTime 3 167.64 cm 18.9 kg/m2 45379.4 1 g 98.3 [degF] 68 /min 18 /min 130 mm[Hg] 82 mm[Hg] Lisa Jacinto MA [facility] 3 09:57:44 Date Recorded Body height Body mass index (BMI) Body weight Heart rate Body temperature Respiratory rate Oxygen saturation Oxygen saturation in Arterial blood by Pulse oximetry Systolic blood pressure Diastolic blood pressure Provider Name and Address Organization Details Last Updated DateTime 4 167.64 cm 19.8 kg/m2 83083.4 2 g 92 /min 98.4 [degF] 18 /min 99 % 99 % 129 mm[Hg] 82 mm[Hg] WILLIAM Dumont [facility] 4 11:35:33 Date Recorded Body height Body mass index (BMI) Body weight Respiratory rate Body temperature Oxygen saturation Oxygen saturation in Arterial blood by Pulse oximetry Heart rate Systolic blood pressure Diastolic blood pressure Provider Name and Address Organization Details Last Updated DateTime 4 167.64 cm 19.7 kg/m2 00372.3 2 g 18 /min 98.2 [degF] 98 % 98 % 96 /min 134 mm[Hg] 87 mm[Hg] Cheryl Kong MA [facility] 4 13:59:05 Social History Question Answer Notes LastModified by Organizat ion Details LastModified Time Tobacco Smoking Status Current Every Day Smoker Angely Chiu MA [facility], [place] - [facility] 06/29/2014 15:49:35 What Is Your Level Of Alcohol Consumption? Heavy Tequila- 1 Pint Daily Information not available 12/05/2021 In The 14 Days Before Symptom Onset, Have You Had Close Contact With A Laboratory-confir med COVID-19 While That Case Was Ill? No [email or web address] Information not available 11/22/2020 In The 14 Days Before Symptom Onset, Have You Had Close Contact With A Person Who Is Under Investigation For COVID-19 While That Person Was Ill? No [email or web address] Information not available 11/22/2020 Have You Been To An Area Known To Be High Risk For COVID-19? No [email or web address] Information not available 11/22/2020 Are You Currently Employed? 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 03/03/2024 Information not available 03/03/2024 What Is Your Current Pack Years? 10packyears [email or web address] Information not available 08/15/2021 What Is Your Relationship Status? Single Information not available 11/22/2020 Are You Sexually Active? No Information not available 11/22/2020 Do You Have Smoke And Carbon Monoxide Detectors In Your Home? Yes [email or web address] Information not available 11/22/2020 Are You Passively Exposed To Smoke? Yes [email or web address] Information no t available 11/22/2020 How Much Tobacco Do You Smoke? 1 PPD 1.5 PPD Information not available 11/22/2020 Do You Use Any Illicit Or Recreational Drugs? No Information not available 06/08/2022 Has Tobacco Cessation Counseling Been Provided? Yes Information not available 12/05/2021 On What Date Was Tobacco Cessation Counseling Provided? 03/03/2024 Information not available 03/03/2024 How Many Years Have You Smoked Tobacco? 30 Information not available 06/29/2014 Do You Or Have You Ever Used Any Other Forms Of Tobacco Or Nicotine? No [email or web address] Information not available 11/22/2020 Sex: Female Functional Status None recorded. Mental Status None recorded. Family History Relationship Description Onset Age of this Age Resolved Age Notes LastModified by Organization Details LastModified Time Father Hypertensive disorder [email or web address] Not available 2015 15:01:18 Father Malignant tumor of pancreas [email or web address] Not available 2015 15:01:18 Medical History Condition Response High Blood Pressure Y Acid Reflux (GERD) Y Gynecological History Statement/Question Response Menses Monthly N If Post Menopausal, Age at Menopause 49 Age at Menarche 16 LMP Unknown Obstetrics History GPAL:G 0 P 0 0 0 0 Immunizations Vaccine Type Date Status Note Provider Nam e and Address Organization Details Recorded Time COVID-19, mRNA, LNP-S, PF, 30 mcg/0.3 mL dose 1 completed Tian Chi MD Attn: [address] [place], [place], [address] [place] [address], [place] [facility] 03/19/2022 20:08:58 COVID-19 vaccine, vector-nr, rS-Ad26, PF, 0.5 mL 1 completed Tian Chi MD Attn: [address] [place], [place], [address] [place] [address], [place] [facility] 03/19/2022 20:08:58 Influenza, split virus, quadrivalent, PF 0 completed Tian Chi MD Attn: [address] [place], [place], [address] [place] [address], [place] [facility] 03/19/2022 20:08:58 zoster recombinant 1 completed Tian Chi MD Attn: [address] [place], [place], [address] [place] [address], [place] [facility] 03/19/2022 20:08:58 zoster recombinant 2 completed Tian Chi MD Attn: [address] [place] [address], [facility] 03/19/2022 20:08:58 Influenza, split virus, trivalent, preservative 1 completed Tian Chi MD Attn: [address]ing[address] [facility], [place], [address], [facility] 03/19/2022 20:08:58 Influenza, split virus, quadrivalent, preservative 7 completed Not Available [facility] 04/26/2019 02:33:02 Influenza, split virus, quadrivalent, preservative 8 completed Not Available [facility] 04/26/2019 02:44:50 Influenza, split virus, quadrivalent, preservative 9 completed Not Available [facility] 04/26/2019 02:38:49 Influenza, split virus, quadrivalent, preservative 5 completed Not Available [facility] 04/26/2019 02:32:09 Past Encounters Encounter ID Performer Location Encounter Start Date Encounter Closed Date Diagnosis/Indication Diagnosis SNOMED-CT Code Diagnosis ICD10 Code Diagnosis Note [id number] CARLOS Cuello [facility] [address] [place] [address] 06/29/2014 15:30:19 06/29/2014 16:36:23 Essential hypertension 60005179 Gastroesop hageal reflux disease 698138323 Tobacco user [id number] Screening for malignant neoplasm of breast 763979870 Adult [facility] examination 778950089 [id number] CARLOS Cuello [facility] [address] [place] [address] 01/04/2015 14:36:12 01/04/2015 15:52:34 Gastroesophageal reflux disease 468161523 Essential hypertension 41536271 Tobacco user 301185395 Adult [facility] examination 259310061 [id number] Kevin Larsen [facility] [address] [place] [address] 02/01/2015 08:32:30 02/01/2015 09:58:05 Essential hypertension 57072908 I10 [id number] YARI Bennett [facility] [address] [place] [id number] 06/14/2015 13:46:13 06/15/2015 15:57:17 Essential hypertension 44667347 I10 [id number] Kevin Larsen [facility] [address] [place] [address] 11/15/2015 14:35:59 11/17/2015 17:53:30 Gastroesophageal reflux disease 629566909 K21.9 Essential hypertension 19731982 I10 Tobacco user 750677067 Z 72.0 Upper resp iratory infection 31930577 J06.9 Adult heal th examination 517681780 Z00.00 [id number] Kodak Jefferson MD [facility] [address] [place] [address] 04/20/2016 11:06:13 04/26/2016 10:32:48 Scapulalgia 03117774 M89.8X1 Needs infl uenza immunization 045699388 Z23 [id number] Kevin Larsen [facility] [address] [place] [id number] 09/25/2016 13:50:31 10/02/2016 09:12:11 Gastroesophageal reflux disease 487164889 K21.9 Upper resp iratory infection 81786638 J06.9 Essential hypertension 71033235 I10 Tobacco user 256959445 Z 72.0 Essential tremor 7035289 09 G25.0 [id number] Kevin Osborn 14 IM [address] [facility] [place] [address] 08/27/2017 13:48:08 08/27/2017 16:08:58 Gastroesophageal reflux disease 371099578 K21.9 Essential hypertension 01112145 I10 Unintentio nal weight loss [id number] R63.4 Screening for malignant neoplasm of colon 652448445 Z12.11 Screening for malignant neoplasm of breast 951184859 Z12.31 Tobacco user 714852680 Z 72.0 [id number] Kevin Osborn 14 IM [address] [place] [address] 09/10/2017 14:17:21 09/11/2017 10:18:50 Unintentional weight loss 738991432 R63.4 Screening for malignant neoplasm of breast 985083500 Z12.31 Alcohol abuse 51718086 F 10.10 [id number] Kevin Osborn 14 IM 4 [place] [address] 03/11/2018 14:28:06 03/12/2018 10:57:29 Tobacco user 461624600 Z72.0 Gastroesop hageal reflux disease 649034404 K21.9 Essential hypertension 62387263 I10 Alcohol abuse 73115010 F 10.10 Administra tion of influenza vaccine 73776968 Z23 [id number] Angely ChiuCARLOS 14 IM [address] [facility] [place] [address] 09/09/2018 13:28:25 09/10/2018 09:35:35 Tobacco user 384737755 Z72.0 Alcohol abuse 92896601 F 10.10 Gastroesop hageal reflux disease 089315380 K21.9 Essential hypertension 47386546 I10 Adult [facility] examination 561197024 Z00.00 Dysuria 77258245 R30.0 [id number] Kevin Osborn 14 IM [address] [facility] [address] [place] [address] 03/10/2019 14:12:37 03/11/2019 10:25:39 Tobacco user 680841224 Z72.0 Alcohol abuse 08778337 F 10.10 Cont to drink alcohol Gastroesop hageal reflux disease 566380940 K21.9 Essential hypertension 51675632 I10 Eruption 414817301 R21 Administra tion of influenza vaccine 52009218 Z23 [id number] Kevin Osborn 14 IM [address] [facility] [address] [place] [address] 06/09/2019 16:05:17 06/10/2019 10:23:09 Tobacco user 063458413 Z72.0 Alcohol abuse 84417904 F 10.10 Cont to drink alcohol Gastroesop hageal reflux disease 926721111 K21.9 Essential hypertension 60422778 I10 Was not taking HCTZ Screening for malignant neoplasm of breast 572197153 Z12.31 [id number] [facility] [address] [place] [address] 11/21/2019 11:21:15 11/24/2019 09:26:47 Suspected COVID-19 073178189 Z03.968 [id number] Kevin Osborn 14 IM [address] [facility] [address] [place] [address] 12/08/2019 08:41:12 12/09/2019 13:20:12 Tobacco user 984184816 Z72.0 Alcohol abuse 12127492 F 10.10 Cont to drink alcohol Gastroesop hageal reflux disease 380563212 K21.9 Essential hypertension 11331086 I10 Adult heal th examination 907576367 Z00.00 Screening for malignant neoplasm of breast 102527854 Z12.31 [id number] Keara Clara [facility] [place] [address] [place] [address] 02/16/2020 09:31:44 02/20/2020 08:55:42 Viral screening 548031271 Z11.59 Viral syndrome 435638343 B34.9 [id number] Keara Elizabeth [facility] [place] [address] [place] [address] 04/14/2020 10:17:25 04/15/2020 13:05:26 Viral screening 074798491 Z11.59 Pt is requesting COVID-19 test result be mailed to home address. Viral syndrome 214451291 B34.9 [id number] VALERI WILSON MD [place] 14 IM [address] [facility] [address] [place] [address] 11/22/2020 13:48:43 11/24/2020 09:46:13 Smoker 69645919 F17.200 - Spent between 3-10 min discussing risks of smoking and benefits of quitting, patient demonstrat ed no interest. Essential hypertension 96961796 I10 continue on amlodipine 10 mg, and HCTZ 25 mg. Pt advised to stop taking propanolol 20 mg since she has stopped drinking since apr 2020 and that her current blood pressure is low ( 104/62) Stiffness of left shoulder 7929260840 56857 M25.612 differenti al includes osteoarthr itis, Deltoid tenderness , frozen shoulder. X-ray ordered. Pt education given on exercise for frozen shoulder. Pt advised to due stretching exercises, and also to use voltaren gel to help with the pain. PT was offered physical therapy but denied. Neck pain 23851774 M54.2 pain with lateral rotation and flexion. Radiation of pain down the arm. Pt advised to due stretching exercises, and also to use voltaren gel to help with the pain. PT was offered physical therapy but they denied. Screening mammography 24 325292 Z12.31 pt is 55 years old, hasn't had a mammograph y for the past 6 years. Gastroesop hageal reflux disease 276065459 K21.9 Encouraged low fat diet, alcohol, spicy greasy foods and caffeinate d beverages. Keep head of bed elevated at night. Do not eat 2-3 hours prior to bedtime. 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 Pt said nothing else works. Due to history of excessive alcohol use a possibilit y to order endoscope. Immunization due 8688718 08 Z28.3 Pt is 55 y/o it is recommende d to get the Shingles vaccine. [id number] MD [place] MIGUEL 14 IM [address] [facility] [address] [place] [address] 02/21/2021 13:32:11 02/22/2021 21:16:31 Stiffness of left shoulder 7437962572 94069 M25.612 Pt was suppose to get her x-ray but didnt. Pain is better with the stretching exercises that were provided last visit.diff erential includes osteoarthr itis, Deltoid tenderness , frozen shoulder. Pt advised to use voltaren gel to help with the pain. PT was offered physical therapy but denied. Screening mammography 24 728853 Z12.31 pt is 55 years old, hasn't had a mammograph y for the past 6 years.pt was suppose to do her mammogram has not done it yet pt encouraged to get her mammogram done. Immunization due Z28.3 Pt is 55 y/o it is recommende d to get the Shingles vaccine. pt will go to health department to get her vaccine. Essential hypertension 38688508 I10 continue on amlodipine 10 mg, and HCTZ 25 mg.blood pressure is under controlno advers effects from the medication Gastroesop hageal reflux disease 661772399 K21.9 Encouraged low fat diet, alcohol, spicy greasy foods and caffeinate d beverages. Keep head of bed elevated at night. Do not eat 2-3 hours prior to bedtime. 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 Pt said nothing else works. Due to history of excessive alcohol use a possibilit y to order endoscope. Smoker 82458505 F17.200 - Spent between 3-10 min discussing risks of smoking and benefits of quitting, patient demonstrat ed no interest at this time, will CTM Vitamin D deficiency 347 02913 E55.9 pt was advised to take over the counter vit D. 1000 units a day. Alcohol abuse 74853540 F 10.10 pt was advised on cessation of alcohol, pt had no interest in cutting down or stopping. Discussed the risk and the benefits of cessation. pt demonstrat ed no interest. [id number] MD [place] MIGUEL 14 IM [address] [facility] [address] [place] [address] 08/15/2021 14:02:48 08/25/2021 11:10:51 Essential hypertension 38054532 I10 continue on amlodipine 10 mg, and HCTZ 25 mg.blood pressure is under controlno advers effects from the medication Gastroesop hageal reflux disease 231285685 K21.9 Encouraged low fat diet, alcohol, spicy greasy foods and caffeinate d beverages. Keep head of bed elevated at night. Do not eat 2-3 hours prior to bedtime. 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 Pt said nothing else works. Due to history of excessive alcohol use a possibilit y to order endoscope. currently not taking famotidine , and is taking omeprazole over the counter Vitamin D deficiency 347 35664 E55.9 Vit D level 05/10/2020 : 13.6pt was advised to take over the counter vit D. 1000 units a day. Screening mammography 24 328425 Z12.31 pt is 55 years old, hasn't had a mammograph y for the past 6 years.pt was suppose to do her mammogram has not done it yet pt encouraged to get her mammogram done. Alcohol abuse 89237151 F 10.10 Pt has restarted drinking, a pint of tequila daily. She states that it helps with her anxiety and has no interest in quitting. Pt doesn't not want any medication to help with cessation. pt was advised on cessation of alcohol, pt had no interest in cutting down or stopping. Discussed the risk and the benefits of cessation. pt demonstrat ed no interest.- pt is having mild tremors and would like propronal Smoker 94987741 F17.200 - Spent between 3-10 min discussing risks of smoking and benefits of quitting, patient demonstrat ed no interest at this time, will CTM Screening for malignant neoplasm of cervix 630133276 Z12.4 routine screening Generalize d anxiety disorder 33790126 F41.1 pt with increased anxiety Tremor 93364363 R25.1 tremors related to alcohol use. [id number] MD [place] Mathur 14 IM [address] [facility] [place] [address] [place] [address] 08/23/2021 14:13:14 08/24/2021 11:51:41 Pruritus of vulva 39124791 L29.2 3 days of vulvar itching.cu rrent smoker and daily ETOH, no other factors that would increase risks repeat infections . Acute urin marcell tract infection 639922863 N39.0 UA in office suggestive of UTIpending UA cultures, will treat empiricall y and switch abx if indicated. [id number] MD [place] Mathur 14 IM [address] [facility] [address] [place] [address] 12/05/2021 11:11:49 12/08/2021 11:20:37 Acute urinary tract infection 131035031 N39.0 UA in office not suggestive of UTI but pt as been symptomati c will treat pending culturespe r chart review: last urine culture positive for E coli susceptibl e to nitrofuran toin. will give pt 5 days of nitrofuran toin pending cultures Candidiasis of vagina 72 885677 B37.3 pt reports that every time she is placed on on antibiotic 's she develops an yeast infx. Will give 1 time dose of diflucan, informed pt to take if symptoms do develop. Increased frequency of urination 095876867 R35.0 A1C was checked today to make sure pt is not diabetic, with the signs and symptoms of increase urination and developmen t of yeast infection with abx usage.a1c was 5.4, most likely the increase in urination do to UTI Essential hypertension 75927535 I10 continue amlodipine 10 mg, and HCTZ 25 mg.blood pressure is under controlno advers effects from the medication Smoker 34926571 F17.200 - Spent between 3-10 min discussing risks of smoking and benefits of quitting, patient demonstrat ed no interest at this time, will CTM [id number] MD [place] Chávez 14 IM [address] [facility] [place] [address] 03/20/2022 14:07:53 03/23/2022 11:07:47 Fracture of left rib 6350639347 6105678 S22.32XA -- stable rib fracture left 9th rib-- incidental prior rib fractures noted on imaging- patient unaware.-- she is a long time smoker with h/o several fractures will assess for bone density-- pain is controlled and patient able to take deep breaths w/o complicati on- has spirometer at home. Smoker 33006409 F17.200 --40 pack year habit current smoker-- not interestin g in quitting at this time Screening for malignant neoplasm of colon 176933249 Z12.11 a colonoscop y was done on 12-03-2017, recommende d to repeat in five years Congestion of nasal sinus 27355717 R09.81 - no assoc fever, sore throat headache, or myalgia.- symptoms improving - reports to being prescribed amox/clav- most likely viral related discussed that no Abx indicated at this time- nasal saline [id number] MD [place] Brady 14 IM [address] [facility] [place] [address] 06/08/2022 16:38:52 06/12/2022 10:07:02 Smoker 49808150 F17.200 - Spent between 3-10 min discussing risks of smoking and benefits of quitting, patient demonstrat ed no interest at this time, will CTM Essential hypertension 99764649 I10 continue amlodipine 10 mg, and HCTZ 25 mg.blood pressure is under controlno advers effects from the medication Pre-surger y evaluation 762307245 Z01.818 revised cardiac risk index: score of 0 point Class I risk with a low risk surgerypt was cleard for surgery that will be done on 06/19/2022 - eyelid surgery [id number] MD [place] Mathur 14 IM [address] [facility] [place] [address] 02/26/2023 09:48:08 02/28/2023 16:34:16 Essential hypertension 54704552 I10 continue amlodipine 10 mg, and HCTZ 25 mg.blood pressure is under controlno advers effects from the medication Alcohol dependence 92524 003 F10.20 Reports a pint a day- drink of choice is tequilaNot interested in cessation Smoker 78253394 F17.200 - Spent between 3-10 min discussing risks of smoking and benefits of quitting, patient demonstrat ed no interest at this time, will CTM Increased frequency of urination 335233437 R35.0 with the signs and symptoms of increased urination and neuropathy will check a1c--> to rule out DMlast a1c was 5.4 in 11/2021UA was non infectious : negative nitrates, negative LE Screening mammography of bilateral breasts 2596695225 95619 Z12.31 Neuropathy 451212975 G62 .9 neuropathy noted on feet and hands, for the past yearPt with extensive history of alcohol use with change be contributi ng to the symptomswi ll check for a1c--> DMwill check folate/B12 and also checking iron panel with ferritin for the rest less syndrom symptoms that pt has been havingonce lab work is in will consider starting pt on gabapentin for the symptoms if pt all other labs results are normal Restless legs 51267122 G 25.81 will check ferritin, b12, iron panel, CBCIabs are normal will plan on treatment with - gabapentin [id number] MD [place] Mathur 14 IM [address] [facility] [address] [place] [address] 08/20/2023 11:13:33 08/29/2023 14:08:01 Dysuria 25300861 R30.0 Chronic symptoms, doubt infection but will check culture one more time. If positive will treat with abx. Previous culture grew Ecoli on 08/2021, but culture from 11/2021 no growthDisc ussed the possibilit y of interstiti al cystitisPt with multiple risk factors: age and current smoker, will get UA to rule out hematuria, and if it is hematuria will consider urology referral Essential hypertension 27702332 I10 continue amlodipine 10 mg, and HCTZ 25 mg.blood pressure is under control 129/82.no advers effects from the medication Smoker 30478786 F17.200 - Spent between 3-10 min discussing risks of smoking and benefits of quitting, patient demonstrat ed no interest at this time Tremor 92290312 R25.1 tremors related to alcohol use.b/l hand tremors Alcohol dependence 77765 003 F10.20 Reports a pint a day- drink of choice is tequilaNot interested in cessation at this time, pt aware that the neuropathy can be secondary to alcohol use. [id number] Kodak Jefferson MD [place] 14 [address] [facility] [address] [place] [address] 03/03/2024 13:35:15 03/05/2024 11:36:47 Chronic retention of urine 586959095 R33.8 58 y/o F w/ 1 yr duration of urinary hesitancy and urine retention w/o symptoms of UTI. No focal neurologic al signs. Urinalysis today was negative for leukocytes and nitrite. Trace blood present. Possible interstiti al cystitisPl an: Referral to urologist for further workup Drug-induc ed hypokalemia 467638726 T50.905D Pt has been taking HCTZ 25 mg for several years. Previously became hypokalemi c and was prescribed KCl supplement ation 1 year ago. Pt reports not taking KCl currently. Plan: Repeat BMP. If hypokalemi c, will restart KCl supplement ation Vaccination not done 998 [id number] 9108 Z28.83 Pt due for pneumococc al and Tdap vaccines. However, they are not available in this clinicPlan : Recommende d that pt inquire about the vaccines at her pharmacy Health Concerns Section Related Observation LastModified by Organization Detai ls LastModified Time None Recorded Concern Status LastModified by Organization Details LastModified Time None Recorded Advance Directives Directive None Recorded Payers Encounter Date Sequence Insurance Name Policy Number Policy [place] Covered Member ID Bernstein Member ID Guarantor Name 03/20/2022 1 [facility] ON OR AFTER 10/07/20 (MEDICAID REPLACEMENT - HMO) Wendy Lopez [id number] Wendy Greenfield Stupperich 06/08/2022 1 [facility] ON OR AFTER 10/07/20 (MEDICAID REPLACEMENT - HMO) Wendy Lopez [id number] Wendy Greenfield Stupperich 02/26/2023 1 [facility] ON OR AFTER 10/07/20 (MEDICAID REPLACEMENT - HMO) Wendy Lopez [id number] Wendy Greenfield Stupperich 08/20/2023 1 [facility] [place] Wendy Greenfield Stupperich [id number] Wendy Greenfield Stupperich 03/03/2024 1 [facility] [place] [facility] [id number] Wendy Greenfield [facility] Notes Date Note Type Note Provider Name and Address Organization Details Recorded Time 2 text/html Patient is a 56y/o w/ PMH of HTN, GERD, tobacco dependence, and ETOH abuse arrived to clinic for urgent care follow up. Patient has a lateral left 9th rib fracture. She reports to tripping over her cat causing the fall. She has prior rib fractures in the past. She states she feels well. Pain is well controlled; has been ibuprofen and tylenol. She was sent home with a spirometer which she has stopped using because she states it doesn't hurt to take a deep breath. Xray showed old broken ribs in the past, patient states she is unaware of any past fractures. She denies ever being diagnosed for having a fracture. Denies family h/o osteoporosis. She also reports to possible sinus infection. She has has sinus congestion for 1 week. Went to urgent care and was prescribed amoxicillin 875 mg-potassium clavulanate 125 mg tablet at the pharmacy. Denies fever, increased cough (smoker w chronic cough), or SOB. No diarrhea or vomiting.tobacco use- for about 40 years pack a day. Kodak Jefferson MD Attn: Accounting[address] [place], [address], [facility] 03/21/2022 13:16:11 3 text/html Patient is a 56y/o w/ PMH of HTN, GERD, tobacco dependence, and ETOH abuse arrived to clinic forclearance for eye lid surgery, entropion repair.Pt denies any chest pain, SOB, headache, vision changes, weakness, neck pain, back pain.PT is compliant with current medications.Reports tat she is going to stop drinking few days before the surgery to allow for proper healing, she will also be off of work for 1 week.Surgery will be on june 19/2023. Shaylee Armstrong MD Attn: [address] [place], [address], [facility] 06/12/2022 08:25:32 3 text/html Patient is a 57y/o w/ PMH of HTN, GERD, tobacco dependence, and ETOH abuse presents for yearly visit.Chief complain of increase in urination, with urgency. reports that it has been ongoing for the past years. No pain with urination. No abdominal pain. No hematuria. Reports when she has the urge to urinate only a small amount of urine comes out. No fever or chills.Pt also reports numbness and tingling in b/l feet and hands. Reports that she has had these symptoms for the past year. Reports night time she has the urge to move her legs. Reports she believes she has neuropathy. HTNCurrently on amlodipine 10mg, HCTZ25, and propranolol 10mgPt denies any chest pain, SOB, headache, vision changes, weaknessPT is compliant with current medications. Alcohol abuseneuropathyReports numbness and tingling in the feet- has been ongoing for a yearReports a pint a day- drink of choice is tequilaNot interested in cessation GERD- taking omeprazole dailyAcid reflux is well control on current medication Smoker- pack and half a day - since she was 41 years Preventative:no low dose CT scan for lung cancer---> CT scanMammogram not done11/2017- colon screen was done ---> no polyp found but reported needing screening in 5 years Emily Lawler MD Attn: Accounting[address] [facility], [place], [address], [facility] 02/26/2023 15:51:23 4 text/html Patient is a 57y/o w/ PMH of HTN, GERD, tobacco dependence, and ETOH abuse presents for follow up in chronic condition and chief complain of urinary symptoms. Chief complain of of urinary issues: Reports increase in urination, with urgency. Reports that she feels as if she doesn't empty out bladder completely. No abdominal pain. No hematuria. Reports when she has the urge to urinate only a small amount of urine comes out. No fever or chills.This has been ongoing for about 7-8 months now. HTNCurrently on amlodipine 10mg, HCTZ25, and propranolol 10mgPt denies any chest pain, SOB, headache, vision changes, weaknessPT is compliant with current medications, and needs refills. Alcohol abuseneuropathyReports numbness and tingling in the feet- has been ongoing for a yearReports a pint a day- drink of choice is tequilaNot interested in cessation at this time, pt aware that the neuropathy can be secondary to alcohol use. GERD- taking omeprazole dailyAcid reflux is well control on current medication Smoker- pack and half a day - since she was 40 years- not interested in cessation Emily Lawler MD Attn: Accounting[address] [place], [address], [facility] 08/27/2023 13:09:31 4 text/html HPI: Patient is a 58 y/o female with a PMH of recurrent strep throat, HTN, TIA many years ago. Here to establish care with me. Pt complains of a chronic issue of urinary hesitancy for 1 year. She constantly feels pressure in her bladder and frequently goes to the bathroom. However, when she attempts to urinate, she is only able to urinate a small amount. She had been previously seen here for the same issue and had unremarkable urinalysis in 08/2023 and urine culture w/ no growth. She denies fever, chills, dysuria, headache, chest pain, SOB, N/V, abdominal pain, constipation, or diarrhea. 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, [place], [address], [place] [facility] 03/05/2024 07:27:17 OBGyn Episode No OBEpisode recorded.
[2024-06-10 09:33] LABS: EDCOVIDSCREEN Negative (Negative); EDINFLUASCREEN Negative (Negative); EDINFLUBSCREEN Negative (Negative); EDSTREPNEGPOS1 Negative (Negative)
--- NOTE | 2024-06-10 09:44 | ED.URI ---
HPI - URI/Sore Throat General Chief Complaint: Dental/Oral Stated Complaint: throat/congestion Time Seen by Provider: 06/10/24 09:44 Source: patient Mode of arrival: ambulatory Limitations: no limitations History of Present Illness HPI Narrative: 58 year old female who presents to [facility] care with complaints of cough, sore throat, congestion, nausea and vomiting and chills which started today and she has noted a lump to the right upper gum which has gone down. Patient reports that she has been taking Advil for her discomfort. Patient reports that her throat is very sore especially to swallow.She states that she has not had any dental care or routine cleaning for several years. MD elicited complaint: cough and sore throat Pertinent past history: other (tobacco abuse) Onset (ago): day(s) (today) Pain scale (0-10): 8 Able to tolerate fluids by mouth: Yes Treatments prior to arrival: ibuprofen Related Data Home Medications ?Medication ?Instructions ?Recorded ?Confirmed ?Last Taken ?Type amlodipine 10 mg tablet 10 mg PO DAILY 03/22/23 03/22/23 Unknown History hydrochlorothiazide 25 mg tablet 25 mg PO DAILY 03/22/23 03/22/23 Unknown History potassium chloride 20 mEq 20 meq PO DAILY 03/22/23 03/22/23 Unknown History tablet,extended release propranolol 10 mg tablet 10 mg PO DAILY 03/22/23 03/22/23 Unknown History Allergies Allergy/AdvReac Type Severity Reaction Status Date / Time Sulfa (Sulfonamide Allergy Hives Verified 06/10/24 09:31 Antibiotics) Review of Systems Review of Systems: CONSTITUTIONAL: Reports malaise, chills, sweats, or fever. EYES: Denies visual changes, redness, or discharge. ENT: Reports rhinorrhea, congestion, sinus pain,no otalgia and positive for sore throat, redness to right upper gum CARDIOVASCULAR: Denies chest pain, palpitations, or edema. RESPIRATORY: Reports cough.? Denies dyspnea. GASTROINTESTINAL: Denies abdominal pain, reports some nausea, vomiting, no diarrhea SKIN: Denies rash or itching. MUSCULOSKELETAL: Denies myalgia. NEUROLOGIC: Denies headache. All systems reviewed & are unremarkable except as noted in HPI and below PMFSH Past Medical History Medical History (Updated 06/11/24 @ 09:31 by Jennyfer Valdez NP) TIA (transient ischemic attack) Hx of primary hypertension H/O gastroesophageal reflux (GERD) Surgical History Surgical History (Updated 06/11/24 @ 09:24 by Jennyfer Valdez NP) History of tonsillectomy H/O breast augmentation Social History Social History (Updated 03/22/23 @ 08:23 by Gisela Tidwell APRN) Smoking status: Current every day smoker Tobacco type: cigarettes Comments At time of signature, agree with nursing past medical, surgical, social and family history. There is no relevant family history pertinent to the presenting complaint Exam Narrative: GENERAL: Well-appearing, well-nourished, and in no acute distress. HEAD: Normocephalic EYES: PERRLA, conjunctivae clear ENT: Nares clear, turbinates edematous and erythematous, clear discharge. Mucous membranes moist. TM pearly hoover with dull light reflex bilaterally; no tragal tenderness. Oropharynx erythematous without lesions. Tonsils not present and throat without exudate, no drooling, no hoarseness, no trismus, uvula midline,redness of palate and redness along right upper gum with no obvious abscess. NECK: Supple. No lymphadenopathy CHEST: Clear to auscultation, breath sounds equal. No wheezing, rhonchi, rales, or stridor. No respiratory distress, speaks in full sentences.SAO2 98% on room air no tachypnea noted occasional cough noted dry. HEART: Regular rate and rhythm. No murmur heard. SKIN: Warm, dry, no rash. NEURO: Alert and oriented x3. PSYCH: Normal mood and affect Course Course Emergency Course: Patient is aware of diagnosis, understands and agrees to treatment plan.? Anticipatory guidance given.? Patient agrees to follow-up as directed and is aware of reasons to seek care at the emergency department. Portions of this record may have been created with voice recognition software Level of Care: Express Care Visit Vital Signs Vital signs: Vital Signs Temperature 36.6 C 06/10/24 08:54 Pulse Rate 105 H 06/10/24 08:54 Respiratory Rate 20 06/10/24 08:54 Blood Pressure 123/84 06/10/24 08:54 Pulse Oximetry 98 06/10/24 08:54 Oxygen Delivery Room Air 06/10/24 08:54 Temperature 36.6 C 06/10/24 08:54 Pulse Rate 105 H 06/10/24 08:54 Respiratory Rate 20 06/10/24 08:54 Blood Pressure 123/84 06/10/24 08:54 Pulse Oximetry 98 06/10/24 08:54 Oxygen Delivery Room Air 06/10/24 08:54 Reviewed MDM - URI/Sore Throat MDM Narrative Medical decision making narrative: Differential diagnosis considered: Benavides virus, strep pharyngitis, allergic rhinitis, upper respiratory tract infection, sinusitis, rhinosinusitis, nasopharyngitis. viral pharyngitis, otitis media, otitis externa, pneumonia, bronchitis, viral cough syndrome, viral syndrome, and influenza.? Exam findings show no acute concerns or changes; patient is non-toxic appearing and is in no distress.? Patient is appropriate for outpatient treatment and follow-up. Differential Diagnosis Differential diagnosis: Likely upper respiratory infection, viral infection, pharyngitis and other (dentalgia, peridontial disease) Medical Records Attestation: I reviewed the patient's medical records. Lab Data Attestation: I reviewed the patient's lab results. Lab results narrative: Influenza A negative, Influenza B negative, COVID antigen negative, Strep screen negative, culture sent Labs: Lab Results 06/10/24 Range/Units 09:08 POC Influenza A Ag Negative (Negative) POC Influenza B Ag Negative (Negative) POC SARS CoV-2 Ag Negative (Negative) POC Grp A Strep Screen Negative (Negative) reviewed Critical Care Time Critical Care Time Critical Care Time: No Discharge Plan Discharge Clinical Impression: Periodontal disease Acute pharyngitis Qualifiers: Pharyngitis/tonsillitis etiology: unspecified etiology Qualified Code(s): J02.9 - Acute pharyngitis, unspecified Patient Disposition: Home, Self-Care Condition: Stable Instructions: Antibiotic Form, Pharyngitis (ED), Periodontal Disease (DC) Additional Instructions: . Take the entire course of antibiotics. Throw away your current toothbrush and begin using a new toothbrush in 48 hours in order to prevent re-infection. Sanitize all reusable water bottles . Do not share items with others. Salt water gargles may alleviate some of the throat discomfort. You can take Tylenol or ibuprofen per the package instructions for pain/fever. Avoid temperature extremes Gentle brushing and flossing Antibiotic as directed Tylenol for lesser pain Use ibuprofen regularly Follow-up with the dentist as soon as possible--see the list provided Your strep test today was negative. A throat culture will be sent to the laboratory for further testing. If your symptoms persist, change or worsen significantly before you can contact your personal physician then please, without delay, go to the emergency department for further evaluation. Follow-up with PCP in 7-10 days or sooner if needed Follow up with PCP soon in regards to your blood pressure which is elevated above threshold for referral. Blood pressure above 120/80 may indicate pre-hypertension.123/84 Patient Language: Albanian Prescriptions: New amoxicillin 875 mg tablet 875 mg PO Q12H Qty: 20 0RF fluconazole 150 mg tablet 150 mg PO ONCE Qty: 1 0RF Rx Instructions: as a single dose No Action propranolol 10 mg tablet 10 mg PO DAILY amlodipine 10 mg tablet 10 mg PO DAILY hydrochlorothiazide 25 mg tablet 25 mg PO DAILY potassium chloride 20 mEq tablet extended release 20 meq PO DAILY Follow-up/Referrals: PHYSICIAN NOT ON STAFF,NONSTAFF [Primary Care Provider] - Stand Alone Forms: Work/School Release IP Time of Disposition: 10:02 Quality [place] Coma Scale Eyes: Open Verbal: Oriented and Alert Motor: Follows Commands [place] Coma Total Score: 15
== END 2024-06-10 10:02 | disposition home or self-care (01) ==
PROVIDERS: Emergency Provider Registered Nurse
DX: K05.6 Periodontal disease, unspecified (principal); J02.9 Acute pharyngitis, unspecified; Z20.822 Contact with and (suspected) exposure to COVID-19; F17.210 Nicotine dependence, cigarettes, uncomplicated; I10 Essential (primary) hypertension; K21.9 Gastro-esophageal reflux disease without esophagitis; Z86.73 Personal history of transient ischemic attack (TIA), and cerebral infarction without residual deficits
CPT/HCPCS: 87081; 87426; 87804; 87880; 99213; G0463